=== PATIENT | male | born 1970 | race American Indian/Alaskan Native ===

== ENCOUNTER 2018-10-18 13:13 | Emergency (ER) | payer BC ==
--- NOTE | 2018-10-18 14:06 | Emergency Department Report ---
Chief Complaint: Neuro Symptoms/Deficit Stated Complaint: ARMS TINGLE/PAIN Time Seen by Provider: 10/18/18 14:01 - HPI History of Present Illness: This is a 48 y.o. male that presents to the ER with bilateral shoulder pain for 2 months. Reports pain increased this morning. Never discussed with PCP. Denies injury. No significant PMH. - Exam Vital Signs: Vital Signs 10/18/18 14:01 Temperature 98.7 F Pulse Rate 82 Respiratory 16 Rate Blood Pressure 148/80 [Right] O2 Sat by Pulse 98 Oximetry MSE screening note: Focused history and physical exam performed. Due to findings the following was ordered: ED Disposition for MSE Condition: Stable
--- NOTE | 2018-10-18 15:46 | Emergency Department Report ---
Upper Extremity - HPI Chief Complaint: Extremity Injury, Upper Stated Complaint: ARMS TINGLE/PAIN Time Seen by Provider: 10/18/18 14:01 Upper Extremity: Left Shoulder, Left Arm, Right Shoulder, Right Arm Severity: moderate Symptoms: Yes Pain with Movement, Yes Numbness, No Deformity, No Limited Range of Movement, No Weakness, No Swelling, No Bruising/Ecchymosis, No Laceration or Abrasion Other History: Patient is a 48-year-old gentleman who is presenting with tingling and discomfort in bilateral arms. States is worse when he is working. Patient does also have some neck discomfort as well. Occasionally the pain does shoot down the arms. He denies any weakness.Symptoms have been present for approx 2 months but worsening ED Review of Systems ROS: Stated complaint: ARMS TINGLE/PAIN Other details as noted in HPI Comment: All other systems reviewed and negative ED Past Medical Hx - Past Medical History Previous Medical History?: No - Surgical History Past Surgical History?: No - Social History Smoking Status: Never Smoker Substance Use Type: Alcohol - Medications Home Medications: Home Medications Medication Instructions Recorded Confirmed Last Taken Type predniSONE [Deltasone] 10 mg PO .TAPER #21 tab 10/18/18 Unknown Rx traMADol [Ultram] 50 mg PO Q6HR PRN #12 tablet 10/18/18 Unknown Rx Upper Extremity Exam - Exam General: Vital signs noted. No distress. Alert and acting appropriately. Head and Torso: No HEENT Abnormality, No Neck Tenderness, No Chest/Lungs Abnormality, No Abdominal Tenderness, No Back Tenderness Shoulder Exam: Yes Normal Range of Motion in Shoulder, No Shoulder Tenderness, No Clavicle Tenderness, No Shoulder Deformity, No AC Joint Tenderness Arm Exam: No Arm/Humerus Tenderness, No Arm Deformity Elbow: No Elbow Tenderness, No Normal Range of Motion in Elbow, No Elbow Deformity Forearm: No Forearm Tenderness, No Forearm Deformity, No Pain with Pronation, No Pain with Supination Wrist: Yes Normal ROM in Wrist, No Wrist Tenderness, No Wrist Deformity, No Snuffbox Tenderness, No Pain with Axial Thumb Compression Hand: Yes Normal ROM in Digit(s), No Hand Tenderness, No Hand Deformity, No Digit Tenderness, No Digit(s) Deformity, No Tendon Dysfunction CMS Exam: No Broken Skin, No Normal Distal Pulses, No Normal Capillary Refill, No Normal Distal Sensation ED Course Vital Signs 10/18/18 14:01 Temperature 98.7 F Pulse Rate 82 Respiratory 16 Rate Blood Pressure 148/80 [Right] O2 Sat by Pulse 98 Oximetry ED Medical Decision Making - Medical Decision Making Patient likely with cervical radiculopathy given his symptoms. Patient will be referred to orthopedics Critical care attestation.: If time is entered above; I have spent that time in minutes in the direct care of this critically ill patient, excluding procedure time. ED Disposition Clinical Impression: Cervical radiculopathy Disposition: DC- TO HOME OR SELFCARE Is pt being admited?: No Does the pt Need Aspirin: No Condition: Stable Instructions: Cervical Radiculopathy (ED) Referrals: BINTA CHEEK MD [Staff Physician] - 3-5 Days Time of Disposition: 15:47
[2018-10-18 16:12] VITALS: BP 146/74
== END 2018-10-18 16:11 | disposition home or self-care (01) ==
LOC: ED 13:13
DX: M54.12 Radiculopathy, cervical region (principal)
CPT/HCPCS: 99282

== ENCOUNTER 2019-01-06 12:41 | Emergency (ER) | payer BC ==
[2019-01-06 12:57] VITALS: BP 143/87
--- NOTE | 2019-01-06 12:58 | Emergency Department Report ---
Blank Doc - Documentation Documentation: This is a 48-year-old male that presents with left side rib pain and left arm pain s/p fall. This initial assessment/diagnostic orders/clinical plan/treatment(s) is/are subject to change based on patient's health status, clinical progression and re- assessment by fellow clinical providers in the ED. Further treatment and workup at subsequent clinical providers discretion. Patient/guardians urged not to elope from the ED as their condition may be serious if not clinically assessed and managed. Initial orders include: 1- Patient sent to [facility] for further evaluation and treatment 2- xrays
--- NOTE | 2019-01-06 13:36 | XRay Report ---
LEFT RIBS, 4 VIEWS INDICATION: Pain after fall. COMPARISON: None. IMPRESSION: No displaced left rib deformity is detected on x-ray. The left lung is well-aerated. Signer Name: Sammy Ramos Jr, MD Signed: 01/06/2019 1:32 PM Workstation Name: [id number]
--- NOTE | 2019-01-06 13:39 | XRay Report ---
LEFT HUMERUS, 2 VIEWS INDICATION: Left arm pain after fall. COMPARISON: None. IMPRESSION: No acute osseous or soft tissue abnormality. No significant DJD. Signer Name: Sammy Ramos Jr, MD Signed: 01/06/2019 1:34 PM Workstation Name: [id number]
--- NOTE | 2019-01-06 17:38 | Emergency Department Report ---
ED Fall HPI - General Chief Complaint: Fall Stated Complaint: LFT SIDE RIB PAIN Time Seen by Provider: 01/06/19 12:57 Source: patient Mode of arrival: Ambulatory - History of Present Illness Initial Comments: Patient is a 48-year-old male presents to the emergency room after a slip and fall while getting out of the shower that occurred a week ago. He has associated left rib pain. He did not see anyone for the fall. The patient states he has some bruising to his left upper arm. Denies any other injury. Patient denies any shortness of breath or chest pain. He has been ambulatory without difficulty. He does not report any numbness, weakness, hitting his head, loss of consciousness. Past medical history of HTN and HLD. Denies any allergies medications. - Related Data Previous Rx's Medication Instructions Recorded Last Taken Type predniSONE [Deltasone] 10 mg PO .TAPER #21 tab 10/18/18 Unknown Rx traMADol [Ultram] 50 mg PO Q6HR PRN #12 tablet 10/18/18 Unknown Rx Naproxen [Naprosyn TAB] 500 mg PO BID PRN #20 tablet 01/06/19 Unknown Rx Allergies Allergy/AdvReac Type Severity Reaction Status Date / Time No Known Allergies Allergy Verified 10/18/18 14:03 ED Review of Systems ROS: Stated complaint: LFT SIDE RIB PAIN Other details as noted in HPI Comment: All other systems reviewed and negative ED Past Medical Hx - Past Medical History Previous Medical History?: No - Surgical History Past Surgical History?: No - Social History Smoking Status: Never Smoker Substance Use Type: None - Medications Home Medications: Home Medications Medication Instructions Recorded Confirmed Last Taken Type predniSONE [Deltasone] 10 mg PO .TAPER #21 tab 10/18/18 Unknown Rx traMADol [Ultram] 50 mg PO Q6HR PRN #12 tablet 10/18/18 Unknown Rx Naproxen [Naprosyn TAB] 500 mg PO BID PRN #20 tablet 01/06/19 Unknown Rx ED Physical Exam - General Limitations: No Limitations General appearance: alert, in no apparent distress - Head Head exam: Present: atraumatic, normocephalic - Eye Eye exam: Present: normal appearance - ENT ENT exam: Present: mucous membranes moist - Respiratory Respiratory exam: Present: normal lung sounds bilaterally, chest wall tenderness (mild left anterior and left lateral rib discomfort to palpation, no crepitus, no deformity, no ecchymosis). Absent: respiratory distress, wheezes, rales, rhonchi, stridor, accessory muscle use, decreased breath sounds, prolonged expiratory - Cardiovascular Cardiovascular Exam: Present: regular rate, normal rhythm, normal heart sounds. Absent: systolic murmur, diastolic murmur, rubs, gallop - Extremities Exam Extremities exam: Present: other (small ecchymosis to the left upper arm, FROM Of the left arm without difficulty or pain, 2+ radial pulse, sensation intact) - Neurological Exam Neurological exam: Present: alert, oriented X3 - Psychiatric Psychiatric exam: Present: normal affect, normal mood - Skin Skin exam: Present: warm, dry ED Course Vital Signs 01/06/19 12:55 Temperature 98.4 F Pulse Rate 87 Respiratory 18 Rate Blood Pressure 143/87 O2 Sat by Pulse 97 Oximetry ED Medical Decision Making - Radiology Data Radiology results: report reviewed LEFT RIBS, 4 VIEWS INDICATION: Pain after fall. COMPARISON: None. IMPRESSION: No displaced left rib deformity is detected on x-ray. The left lung is well-aerated. Signer Name: Sammy Dill Jr, MD Signed: 01/06/2019 1:32 PM Workstation Name: [id number] Transcribed By: TTR Dictated By: SAMMY DILL JR, MD Electronically Authenticated By: SAMMY DILL JR, MD Signed Date/Time: 01/06/19 1332 LEFT HUMERUS, 2 VIEWS INDICATION: Left arm pain after fall. COMPARISON: None. IMPRESSION: No acute osseous or soft tissue abnormality. No significant DJD. Signer Name: Sammy Dill Jr, MD Signed: 01/06/2019 1:34 PM Workstation Name: [id number] Transcribed By: TTR Dictated By: SAMMY DILL JR, MD Electronically Authenticated By: SAMMY DILL JR, MD Signed Date/Time: 01/06/19 1334 - Medical Decision Making Patient is a 48-year-old male presents to the emergency room after a slip and fall while getting out of the shower that occurred a week ago. He has associated left rib pain. He did not see anyone for the fall. The patient states he has some bruising to his left upper arm. Denies any other injury. Patient denies any shortness of breath or chest pain. He has been ambulatory without difficulty. He does not report any numbness, weakness, hitting his head, loss of consciousness. Past medical history of HTN and HLD. Denies any allergies medications. VSS. on exam: mild left anterior and left lateral rib discomfort to palpation, no crepitus, no deformity, no ecchymosis, small ecchymosis to the left upper arm, FROM Of the left arm without difficulty or pain, 2+ radial pulse, sensation intact. XR of the left ribs with chest: No displaced left rib deformity is detected on x-ray. The left lung is well- aerated. XR of the left humerus: No acute osseous or soft tissue abnormality. No significant DJD. pt given prescription for naproxen. advised to please take medication as prescribed as needed. may use ice, rest, heating pad. given handout on costochrondritis you have a rib contusion but the treatment is the same. follow up with a primary care doctor in the next 2-3 days. return to the emergency room for any new or worsening symptoms. - Differential Diagnosis strain, sprain, fx, dislocation, contusion Critical care attestation.: If time is entered above; I have spent that time in minutes in the direct care of this critically ill patient, excluding procedure time. ED Disposition Clinical Impression: Rib pain on left side Fall Qualifiers: Encounter type: initial encounter Qualified Code(s): W19.XXXA - Unspecified fall, initial encounter Traumatic ecchymosis of left upper arm Qualifiers: Encounter type: initial encounter Qualified Code(s): S40.022A - Contusion of left upper arm, initial encounter Disposition: - TO HOME OR SELFCARE Is pt being admited?: No Does the pt Need Aspirin: No Condition: Stable Instructions: Costochondritis (ED) Additional Instructions: please take medication as prescribed as needed. may use ice, rest, heating pad. given handout on costochrondritis you have a rib contusion but the treatment is the same. follow up with a primary care doctor in the next 2-3 days. return to the emergency room for any new or worsening symptoms. Prescriptions: Naproxen [Naprosyn TAB] 500 mg PO BID PRN #20 tablet PRN Reason: pain Referrals: RED ESTEVEZ MD [Primary Care Provider] - 2-3 Days Time of Disposition: 17:50 Print Language: KAZAKH
== END 2019-01-06 17:55 | disposition home or self-care (01) ==
LOC: ED 12:41
DX: S40.022A Contusion of left upper arm, initial encounter (principal); R07.81 Pleurodynia; W01.0XXA Fall on same level from slipping, tripping and stumbling without subsequent striking against object, initial encounter; Y93.89 Activity, other specified; Y92.89 Other specified places as the place of occurrence of the external cause; Y99.8 Other external cause status
CPT/HCPCS: 99283